=== PATIENT | female | born 1985 | race Caucasian/White ===

== ENCOUNTER 2018-08-12 08:37 | Emergency (ER) | payer BC ==
[2018-08-12] MEDS ORDERED: SODIUM CHLORIDE 0.9% 1000ML 1,000 ML IVS ONE (09:03)
--- NOTE | 2018-08-12 09:04 | ED.PDOC ---
History of Present Illness - General Chief Complaint: General Stated Complaint: Pt complains of fever, N/V, and body aches Time Seen by Provider: 08/12/18 09:01 Source: patient, family Exam Limitations: no limitations - History of Present Illness Initial Comments: PT AWOKE 1230 MIDNIGHT LAST NIGHT WITH N/V, FEVERS, MYALGIAS. (NO ABD PAIN; JUST QUEASY.) VX4 TODAY. DECR PO INTAKE. PT AND FAMILY MEMBER STATE SHE WAS SIMILARLY SICK IN APR AND MAY BUT NO LABS CHECKED BESIDES STREP AND FLU SO THEY ARE WORRIED IT IS SOMETHING OTHER THAN JUST A VIRAL IFXN AND WOULD LIKE MORE LABS CHECKED. I INFORMED PT AND FAMILY I WOULD BE HAPPY TO CHECK THE LABS WE HAVE IN THE ER AND IT WOULD MAKE SENSE THIS IS HER 3RD BOUT, BUT FOR MORE IN DEPTH INFECTIOUS DISEASE LABS, WE DON'T HAVE THOSE IN THE ER AND THEY WOULD WANT TO START WITH THEIR PCP. THEY BOTH EXPRESSED UNDERSTANDING AND APPRECIATION. Timing/Duration: other - 9 HRS Severity: moderate Improving Factors: nothing Worsening Factors: nothing Associated Symptoms: fever/chills, malaise, nausea/vomiting Allergies/Adverse Reactions: Allergies NO KNOWN ALLERGY Allergy (Verified 08/12/18 09:02) Home Medications: Ambulatory Orders Ondansetron Odt [Zofran ODT] 8 mg SL TID PRN #15 tab 08/12/18 Review of Systems - Review of Systems Constitutional: States: chills, diaphoresis, fever, malaise EENTM: Denies: ear pain, nose congestion, throat pain Respiratory: Denies: cough, short of breath, wheezing Cardiology: Denies: chest pain, palpitations Gastrointestinal/Abdominal: States: nausea, vomiting. Denies: abdominal pain, constipation, diarrhea Genitourinary: Denies: dysuria, frequency Musculoskeletal: States: muscle pain, other - BUE AND BLE MYALGIAS. Denies: back pain, neck pain Skin: Denies: lesions, rash Neurological: Denies: headache, paresthesia Endocrine: Denies: increased hunger, increased thirst Hematologic/Lymphatic: Denies: easy bleeding, easy bruising All other Systems: Reviewed and Negative Past Medical History (General) - Patient Medical History Hx Stroke: No Hx of COPD: No Hx Congestive Heart Failure: No Hx Hypertension: No Hx Diabetes: No Hx Cancer: No Surgical History: cholecystectomy, tonsillectomy, other - Social History Hx Tobacco Use: Yes Hx Alcohol Use: Yes - rarely Hx Substance Use: No Hx Substance Use Treatment: No Hx Depression: No - Female History Patient is a Female of Child Bearing Age (10 -59 yrs old): Yes Patient : No Family Medical History - Family History Paternal Grandparents Living Status: Hx Cardiac Disease: Yes Hx Family Cancer: Yes Physical Exam - Physical Exam General Appearance: Alert, Ill Appearing, Obese Eye Exam: bilateral normal Ears, Nose, Throat: hearing grossly normal, normal ENT inspection, normal pharynx Neck: non-tender, full range of motion, supple, normal inspection Respiratory: lungs clear, normal breath sounds Cardiovascular/Chest: regular rate, rhythm, no murmur Peripheral Pulses: radial,right: 2+, radial,left: 2+ Gastrointestinal/Abdominal: normal bowel sounds, non tender, soft, no organomegaly, no pulsatile mass Rectal Exam: deferred Back Exam: normal inspection, no CVA tenderness Extremity: normal range of motion, normal inspection Neurologic: art editor II-XII nml as tested, no motor/sensory deficits, alert Skin Exam: normal color, warm/dry Lymphatic: no adenopathy Progress - Progress Progress: 08/12/18 10:36 VIRAL GASTROENTERITIS. LABS NEG/WNL: RAPID FLU, STREP, CMP, LIPASE, HCG. CBC SHOWS WBC 16.1 WITH ELEV NEUTS, C/W ACUTE VIRAL IFXN. TACHYCARDIA FROM MILD DEHYDRATION. BOLUS HAS DECREASED PULSE FROM 131 TO 90. REST, FLUIDS, MOTRIN FOR MYALGIAS. TX ZOFRAN FOR NAUSEA. 08/12/18 12:11 Departure - Departure Clinical Impression: Myalgia, Tachycardia with heart rate 121-140 beats per minute, Viral gastroenteritis, Dehydration Fever Qualifiers: Fever type: unspecified Qualified Code(s): R50.9 - Fever, unspecified Nausea & vomiting Qualifiers: Vomiting type: unspecified Vomiting Intractability: non-intractable Qualified Code(s): R11.2 - Nausea with vomiting, unspecified Disposition: Discharge to Home or Self Care Condition: Good Departure Forms: ED Discharge - Pt. Copy, Patient Portal Self Enrollment Instructions: Viral Gastroenteritis, Adult (DC) Diet: bland diet Activity: increase activity as tolerated Referrals: SUKH JIMÉNEZ IV, [facility] [Primary Care Provider] - 1-2 Weeks Prescriptions: Ondansetron Odt [Zofran ODT] 8 mg SL TID PRN #15 tab PRN Reason: Nausea Home Medications: Ambulatory Orders Ondansetron Odt [Zofran ODT] 8 mg SL TID PRN #15 tab 08/12/18 Additional Instructions: Please drink plenty of fluids to prevent dehydration and get plenty of rest. Zofran will help the nausea and vomiting.
[2018-08-12] MEDS ORDERED: ONDANSETRON INJ 4 MG/2 ML VIAL IV ONE (09:21)
[2018-08-12] MEDS ORDERED: IBUPROFEN 200 MG TAB PO ONE (09:38)
[2018-08-12 12:25] VITALS: BP 103/53
[2018-08-12 12:27] VITALS: O2SAT 97
[2018-08-12 12:29] VITALS: TEMP 98.6
== END 2018-08-12 12:25 | disposition home or self-care (01) ==
LOC: ER 08:37
DX: A08.4 Viral intestinal infection, unspecified (principal); E86.0 Dehydration; R50.9 Fever, unspecified; R00.0 Tachycardia, unspecified; Z90.49 Acquired absence of other specified parts of digestive tract; Z87.891 Personal history of nicotine dependence
CPT/HCPCS: 80053; 81001; 83690; 84703; 85025; 87070; 87086; 87502; 87880; J2405; J7030